=== PATIENT | male | born 1965 | race Two or more races ===

== ENCOUNTER 2018-04-03 12:32 | Emergency (ER) | payer OTHER ==
[~2018-04-03] VITALS: Ht 188 cm; Wt 86.2 kg
[2018-04-03] MEDS ORDERED: ASPIRIN-LOW81 MG ORAL (12:35)
[2018-04-03] MEDS ORDERED: NOVOLIN R100 UNIT/1 SUBQ (12:35)
[2018-04-03] MEDS ORDERED: LISINOPRIL5 MG ORAL (12:35)
[2018-04-03 13:04] VITALS: BP 119/53
[2018-04-03 13:10] LABS: HEMATOCRIT 33.2 % (42.0-52.0); HEMOGLOBIN 10.6 G/DL (14.2-18.0); MEAN CORPUSCULAR VOLUME 78 FL (80-99); PLATELET COUNT 568 K/UL (150-450); RED BLOOD COUNT 4.25 M/UL (4.70-6.10); RED CELL DISTRIBUTION WIDTH 13.2 % (11.6-14.8); WHITE BLOOD COUNT 24.1 K/UL (4.8-10.8)
[2018-04-03] MEDS ORDERED: NS 1000ml 2,600 ML IVLG ONE (13:15)
[2018-04-03] MEDS ORDERED: Vancomycin 1.5gm/D5W 250ml 250 ML IVPB ONE (13:15)
[2018-04-03] MEDS ORDERED: cefTRIAXone 1 GM in NS 55 ML IVPB ONE (13:15)
--- NOTE | 2018-04-03 13:16 | Emergency Room Report ---
History of Present Illness General Chief Complaint: Edema Source: Patient, EMS (Kristen Wilkinson DO) Present Illness HPI Patient is brought in with paramedics It was reported that the patient had swelling in his legs And found in the street upon arrival the patient is somewhat confused Has pressured speech Reports that he does have history of hypertension and diabetes However is noncompliant There was no reports of vomiting or diarrhea patient has pain to both of his legs History of present illness is limited as the patient is not able to provide full appropriate history Appears chronically debilitated and significantly ill upon arrival (Kristen Wilkinson DO) Allergies: Coded Allergies: UNABLE TO ASSESS (Unverified , 04/03/18) Patient History Limited by: medical condition Past Medical History: see triage record Pertinent Family History: none Reviewed Nursing Documentation: PMH: Agreed; PSxH: Agreed (Kristen Wilkinson DO) Nursing Documentation-PMH Hx Hypertension: Yes Hx Seizures: Yes (Kristen Wilkinson DO) Review of Systems All Other Systems: limited - Other than the ones mentioned in the history of present illness all others are reviewed however they do stay limited due to the patient's mental status (Kristen Wilkinson DO) Physical Exam Vital Signs Date Time Temp Pulse Resp B/P (MAP) Pulse Ox O2 Delivery O2 Flow Rate FiO2 04/03/18 12:32 97.5 90 16 156/98 98 Room Air Sp02 EP Interpretation: reviewed, normal General Appearance: mild distress - Appears agitated Head: normocephalic, atraumatic Eyes: bilateral eye PERRL ENT: dry mucus membranes Neck: supple Respiratory: no respiratory distress, no retraction, crackles - Both lower lobes Cardiovascular #1: tachycardia Gastrointestinal: non tender, soft Musculoskeletal: other - Significant venous stasis bilaterally, multiple open wounds, with increased erythema and discharge Neurologic: responsive - To name, patient requires multiple external stimuli in order to open eyes and communicate Skin: other - As above, significant changes,Also including upper extremity increased swelling and erythema more on the right Lymphatic: other - Bilateral edema (Kristen Wilkinson DO) Procedures Critical Care Time Critical Care Time 50 minutes for multiple re-evaluations initial presentation concerning for sepsis and cardiopulmonary arrest not including any procedural time, (Kristen Wilkinson DO) Medical Decision Making Diagnostic Impression: Primary Impression: Sepsis Qualified Codes: A41.9 - Sepsis, unspecified organism Additional Impressions: Cellulitis Qualified Codes: L03.90 - Cellulitis, unspecified Hyperglycemia ER Course Given the patient's exam and presentation findings are very concerning patient initiated on aggressive hydration and antibiotics Panculturing obtained Patient remains hemodynamically stable has slowly improved throughout his stay as well Patient has significant findings Secondary to insurance purposes patient has been requested for transfer Remains hemodynamically stable and appropriate for transfer at time of request Patient requiring hospital admission Labs Test 04/03/18 12:55 White Blood Count 24.1 K/UL (4.8-10.8) Red Blood Count 4.25 M/UL (4.70-6.10) Hemoglobin 10.6 G/DL (14.2-18.0) Hematocrit 33.2 % (42.0-52.0) Mean Corpuscular Volume 78 FL (80-99) Mean Corpuscular Hemoglobin 24.9 PG (27.0-31.0) Mean Corpuscular Hemoglobin Concent 31.9 G/DL (32.0-36.0) Red Cell Distribution Width 13.2 % (11.6-14.8) Platelet Count 568 K/UL (150-450) Mean Platelet Volume 6.0 FL (6.5-10.1) Neutrophils (%) (Auto) % (45.0-75.0) Lymphocytes (%) (Auto) % (20.0-45.0) Monocytes (%) (Auto) % (1.0-10.0) Eosinophils (%) (Auto) % (0.0-3.0) Basophils (%) (Auto) % (0.0-2.0) Differential Total Cells Counted 100 Neutrophils % (Manual) 82 % (45-75) Lymphocytes % (Manual) 3 % (20-45) Monocytes % (Manual) 4 % (1-10) Eosinophils % (Manual) 0 % (0-3) Basophils % (Manual) 0 % (0-2) Band Neutrophils 11 % (0-8) Platelet Estimate Adequate Platelet Morphology Normal Hypochromasia 2+ Microcytosis 1+ Sodium Level 121 MMOL/L (136-145) Potassium Level 5.1 MMOL/L (3.5-5.1) Chloride Level 87 MMOL/L (98-107) Carbon Dioxide Level 27 MMOL/L (21-32) Anion Gap 7 mmol/L (5-15) Blood Urea Nitrogen 15 mg/dL (7-18) Creatinine 1.1 MG/DL (0.55-1.30) Estimat Glomerular Filtration Rate > 60 mL/min (>60) Glucose Level 407 MG/DL (74-106) Calcium Level 8.2 MG/DL (8.5-10.1) Total Bilirubin 0.6 MG/DL (0.2-1.0) Aspartate Amino Transf (AST/SGOT) 22 U/L (15-37) Alanine Aminotransferase (ALT/SGPT) 24 U/L (12-78) Alkaline Phosphatase 203 U/L (46-116) Total Creatine Kinase 251 U/L (26-308) Creatine Kinase MB 4.8 NG/ML (0.0-3.6) Creatine Kinase MB Relative Index 1.9 Total Protein 9.1 G/DL (6.4-8.2) Albumin 1.4 G/DL (3.4-5.0) Globulin 7.7 g/dL Albumin/Globulin Ratio 0.2 (1.0-2.7) (Kristen Wilkinson DO) ER Course Please see above note. Patient examined by me. Superative lesions bilat legs and R arm. Antibiotics ordered by Dr. Wilkinson. Sepsis re-eval: more alert, not hypotensive, less tachycardic, good cap fill. Lactate now normal. 16:20 Continue aggressive hydration. Message for Dr. Thurman/discussed Stable for ALS transfer. Laboratory Tests Test 04/03/18 12:55 04/03/18 13:50 04/03/18 15:02 White Blood Count 24.1 K/UL (4.8-10.8) *H Red Blood Count 4.25 M/UL (4.70-6.10) L Hemoglobin 10.6 G/DL (14.2-18.0) L Hematocrit 33.2 % (42.0-52.0) L Mean Corpuscular Volume 78 FL (80-99) L Mean Corpuscular Hemoglobin 24.9 PG (27.0-31.0) L Mean Corpuscular Hemoglobin Concent 31.9 G/DL (32.0-36.0) L Red Cell Distribution Width 13.2 % (11.6-14.8) Platelet Count 568 K/UL (150-450) H Mean Platelet Volume 6.0 FL (6.5-10.1) L Neutrophils (%) (Auto) % (45.0-75.0) Lymphocytes (%) (Auto) % (20.0-45.0) Monocytes (%) (Auto) % (1.0-10.0) Eosinophils (%) (Auto) % (0.0-3.0) Basophils (%) (Auto) % (0.0-2.0) Differential Total Cells Counted 100 Neutrophils % (Manual) 82 % (45-75) H Lymphocytes % (Manual) 3 % (20-45) L Monocytes % (Manual) 4 % (1-10) Eosinophils % (Manual) 0 % (0-3) Basophils % (Manual) 0 % (0-2) Band Neutrophils 11 % (0-8) H Platelet Estimate Adequate Platelet Morphology Normal Hypochromasia 2+ Microcytosis 1+ Sodium Level 121 MMOL/L (136-145) L Potassium Level 5.1 MMOL/L (3.5-5.1) Chloride Level 87 MMOL/L (98-107) L Carbon Dioxide Level 27 MMOL/L (21-32) Anion Gap 7 mmol/L (5-15) Blood Urea Nitrogen 15 mg/dL (7-18) Creatinine 1.1 MG/DL (0.55-1.30) Estimate Glomerular Filtration Rate > 60 mL/min (>60) Glucose Level 407 MG/DL (74-106) H Calcium Level 8.2 MG/DL (8.5-10.1) L Total Bilirubin 0.6 MG/DL (0.2-1.0) Aspartate Amino Transferase (AST) 22 U/L (15-37) Alanine Aminotransferase (ALT) 24 U/L (12-78) Alkaline Phosphatase 203 U/L (46-116) H Total Creatine Kinase 251 U/L (26-308) Creatine Kinase MB 4.8 NG/ML (0.0-3.6) H Creatine Kinase MB Relative Index 1.9 Total Protein 9.1 G/DL (6.4-8.2) H Albumin 1.4 G/DL (3.4-5.0) L Globulin 7.7 g/dL Albumin/Globulin Ratio 0.2 (1.0-2.7) L Lactic Acid Level 2.80 mmol/L (0.4-2.0) H 1.90 mmol/L (0.66-2.22) (Rahul Oneil MD) Rhythm Strip Diag. Results EP Interpretation: yes Rate: 112 Rhythm: no PVC's, no ectopy, other - Sinus tach (Kristen Wilkinson DO) Chest X-Ray Diagnostic Results Chest X-Ray Diagnostic Results : Chest X-Ray Ordered: Yes # of Views/Limited/Complete: 1 View Indication: Chest Pain EP Interpretation: Yes Interpretation: no consolidation, no effusion, no pneumothorax Impression: No acute disease Electronically Signed by: Kristen Wilkinson DO (Kristen Wilkinson DO) Last Vital Signs Date Time Temp Pulse Resp B/P (MAP) Pulse Ox O2 Delivery O2 Flow Rate FiO2 04/03/18 13:05 130 21 Room Air 04/03/18 13:04 100.9 119/53 99 Status: improved (Kristen Wilkinson DO) Last Vital Signs Date Time Temp Pulse Resp B/P (MAP) Pulse Ox O2 Delivery O2 Flow Rate FiO2 04/03/18 17:58 98.6 115 21 117/58 100 Room Air Status: improved (Rahul Oneil MD) Disposition: XFER [facility] HOSP Condition: Serious Referrals: [facility],REFERRING (PCP) Kristen Wilkinson DO Apr 03, 2018 13:16 Rahul Oneil MD Apr 03, 2018 16:40
[2018-04-03 13:20] LABS: ANION GAP 7 mmol/L (5-15); BLOOD UREA NITROGEN 15 mg/dL (7-18); CALCIUM 8.2 MG/DL (8.5-10.1); CARBON DIOXIDE 27 MMOL/L (21-32); CHLORIDE 87 MMOL/L (98-107); CREATININE 1.1 MG/DL (0.55-1.30); POTASSIUM 5.1 MMOL/L (3.5-5.1); SODIUM 121 MMOL/L (136-145)
[2018-04-03 13:24] LABS: ALANINE AMINOTRANSFERASE 24 U/L (12-78); ALBUMIN 1.4 G/DL (3.4-5.0); ALBUMIN/GLOBULIN RATIO 0.2 (1.0-2.7); ALKALINE PHOSPHATASE 203 U/L (46-116); ASPARTATE AMINO TRANSFERASE 22 U/L (15-37); BILIRUBIN,TOTAL 0.6 MG/DL (0.2-1.0)
[2018-04-03 13:33] LABS: CKMB 4.8 NG/ML (0.0-3.6)
[2018-04-03 15:06] VITALS: BP 143/65
[2018-04-03 16:42] VITALS: BP 145/62
[2018-04-03 17:57] VITALS: BP 117/58
[2018-04-03 17:58] VITALS: BP 117/58
--- NOTE | 2018-04-04 11:50 | Diagnostic Imaging Report ---
Indication: Dyspnea Comparison: None A single view chest radiograph was obtained. Findings: Cardiomediastinal appearance is within normal limits for age. Sternotomy noted. The lungs are clear. Pulmonary vascularity is appropriate. The diaphragmatic contour is smooth and costophrenic angles are sharp. No pleural effusions are identified. The bones are osteopenic. Impression: No acute findings
== END 2018-04-03 17:58 | disposition other institution (70) ==
LOC: EDBD 12:32 → EMR 12:40 → EDBEDREQ 13:16 → EMR 17:58
DX: A41.9 Sepsis, unspecified organism (principal); L03.90 Cellulitis, unspecified; I10 Essential (primary) hypertension; E11.65 Type 2 diabetes mellitus with hyperglycemia; R00.0 Tachycardia, unspecified
CPT/HCPCS: 36415; 71045; 80053; 82550; 82553; 83605; 85007; 85025; 87040; 93005; 96361; 96365; 96366; 96368; 99291; J0696; J3370